=== PATIENT | female | born 1990 | race Caucasian/White ===

== ENCOUNTER → 2019-07-26 10:49 | Outpatient (BNVA) | payer SELFPAY | PROVIDERS: Family Provider Family Medicine; PCP Family Medicine; Visit Provider Nurse Practitioner | DX: J03.80 Acute tonsillitis due to other specified organisms (principal); B96.89 Other specified bacterial agents as the cause of diseases classified elsewhere | CPT/HCPCS: 87070; 87880 ==

== ENCOUNTER 2020-02-10 21:14 | Emergency (ER) | payer OTHER, SELFPAY ==
[2020-02-10 21:26] VITALS: BP 113/72; PULSE 77; RESP 18; TEMP 36.7; O2SAT 99; BMI 32.9
--- NOTE | 2020-02-10 21:40 | ED_ITS ---
HPI - Medical Clearance General Chief complaint: Medical Clearance Stated complaint: poss exposure Time Seen by Provider: 02/10/20 21:33 Source: patient (Patient self removed NG tube causing fluids to fly and nurses face. 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 Nurse was wearing a mask and denies any fluids getting into her eye or mouth. 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 Nurse said that patient self removed NG tube causing fluids to splash in her face. Nurse was wearing a mask and denies any fluids getting into her eye or mouth. Nurse states that patient had tested negative for HIV and was positive for hep C. While here in the ED nurse/patient had a normal physical exam and showed no signs of any distress. CBC, CMP were normal. HIV and hep panel were ordered and pending. Patient was discharged and told that she will be contacted by [facility] about lab results in the next several days. Return to ED if she has any worsening symptoms. Patient understood and agreed with plan. Vital Signs Temperature 98.0 F 02/10/20 21:26 Pulse Rate 80 02/10/20 22:23 Respiratory Rate 18 02/10/20 22:23 Blood Pressure 115/76 02/10/20 22:23 Pulse Oximetry 98 02/10/20 22:23 MDM - Medical Clearance Lab Data Attestation: I reviewed the patient's lab results. Result diagrams: 02/10/20 21:56 02/10/20 21:56 Labs: Lab Results 02/10/20 02/10/20 02/10/20 Range/Units 21:56 21:56 21:56 WBC 6.1 (4.0-10.0) 10^3/uL RBC 4.38 (4.1-5.3) 10^6/uL Hgb 13.5 (11.5-15.3) g/dL Hct 41.0 (37.0-47.0) % MCV 93.6 (81-99) fL MCH 30.8 (28.0-34.0) pg MCHC 32.9 (30.0-36.0) g/dL RDW 12.1 (12.1-15.1) % Plt Count 371 (130-400) 10^3/cmm MPV 9.1 (7.4-10.4) fL Neut % (Auto) 63.2 % Lymph % (Auto) 22.9 % Stark % (Auto) 7.6 % Eos % (Auto) 5.1 % Baso % (Auto) 1.0 % Neut # (Auto) 3.84 (1.8-7.7) 10^3/uL Lymph # (Auto) 1.4 (0.8-4.8) 10^3/uL Stark # (Auto) 0.5 (0.2-0.9) 10^3/uL Eos # (Auto) 0.3 (0.0-0.8) 10^3/uL Baso # (Auto) 0.1 (0.0-0.1) 10^3/uL Nucleated RBC % (auto) 0 % Nucleated RBCs # 0.0 /100WBC Sodium 138 (136-145) mmol/L Potassium 4.5 (3.5-5.1) mmol/L Chloride 103 (98-107) mmol/L Carbon Dioxide 25 (22-29) mmol/L Anion Gap 14.5 (5-19) BUN 10 (6-20) mg/dL Creatinine 0.6 (0.5-0.9) mg/dL GFR Calculation 119.9 (90-130) mL/min Glucose 96 (65-115) mg/dL Calculated Osmolality 282 L (285-295) mOsm/kg Calcium 8.7 (8.5-10.5) mg/dL Total Bilirubin 0.3 (0.15-1.2) mg/dL AST 18 (0-32) U/L ALT 23 (0-33) U/L Alkaline Phosphatase 76 (35-105) IU/L Total Protein 7.4 (6.6-8.7) g/dL Albumin 4.3 (3.5-5.2) g/dL Globulin 3.1 (1.3-4.6) g/dL Hepatitis A IgM Ab (Nonreactive) Hep Bs Antigen (Nonreactive) Hep Bs Antibody (0-8.5) Hep B Core Total Ab (Nonreactive) Hepatitis C Antibody (Nonreactive) HIV 1&2 Ab & HIV 1 Ag Non-reactive (Non-Reactiv) HIV 1&2 Antibody Non-reactive (Non-Reactiv) 02/10/20 Range/Units 21:56 WBC (4.0-10.0) 10^3/uL RBC (4.1-5.3) 10^6/uL Hgb (11.5-15.3) g/dL Hct (37.0-47.0) % MCV (81-99) fL MCH (28.0-34.0) pg MCHC (30.0-36.0) g/dL RDW (12.1-15.1) % Plt Count (130-400) 10^3/cmm MPV (7.4-10.4) fL Neut % (Auto) % Lymph % (Auto) % Stark % (Auto) % Eos % (Auto) % Baso % (Auto) % Neut # (Auto) (1.8-7.7) 10^3/uL Lymph # (Auto) (0.8-4.8) 10^3/uL Stark # (Auto) (0.2-0.9) 10^3/uL Eos # (Auto) (0.0-0.8) 10^3/uL Baso # (Auto) (0.0-0.1) 10^3/uL Nucleated RBC % (auto) % Nucleated RBCs # /100WBC Sodium (136-145) mmol/L Potassium (3.5-5.1) mmol/L Chloride (98-107) mmol/L Carbon Dioxide (22-29) mmol/L Anion Gap (5-19) BUN (6-20) mg/dL Creatinine (0.5-0.9) mg/dL GFR Calculation (90-130) mL/min Glucose (65-115) mg/dL Calculated Osmolality (285-295) mOsm/kg Calcium (8.5-10.5) mg/dL Total Bilirubin (0.15-1.2) mg/dL AST (0-32) U/L ALT (0-33) U/L Alkaline Phosphatase (35-105) IU/L Total Protein (6.6-8.7) g/dL Albumin (3.5-5.2) g/dL Globulin (1.3-4.6) g/dL Hepatitis A IgM Ab Non-reactive (Nonreactive) Hep Bs Antigen Non-reactive (Nonreactive) Hep Bs Antibody 3.5 (0-8.5) Hep B Core Total Ab Non-reactive (Nonreactive) Hepatitis C Antibody Non-reactive (Nonreactive) HIV 1&2 Ab & HIV 1 Ag (Non-Reactiv) HIV 1&2 Antibody (Non-Reactiv) Discharge Plan Discharge Patient Disposition: Home, Self-Care Clinical Impression: Exposure to blood or body fluid Condition: Stable Discharge Orders: Discharge Order (Routine); Ordered 02/10/20 Ordered By: John Liu Referrals: Sidney Salazar MD [Primary Care Provider] - Discharge Diet: Regular Discharge Activity: Resume usual activity Patient Instructions: Blood/Body Fluid Exposure - Occupational Activity Restrictions/Additional Instructions: Follow-up with medical provider as directed in 5-7 days. Hepatitis panel, HIV testing pending. Lab will contact you with results. Return to the ER or your medical provider if condition worsens. Please read and understand discharge instructions. If any questions, please ask. Discharge Date/Time: 02/10/20 22:24
[2020-02-10 22:00] LABS: Basophils # 0.1 10^3/uL (0.0-0.1); Eosinophils # 0.3 10^3/uL (0.0-0.8); Eosinophils % 5.1 %; Hemoglobin 13.5 g/dL (11.5-15.3); Lymphocytes # 1.4 10^3/uL (0.8-4.8); Lymphocytes % 22.9 %; Mean Corpuscular HGB Conc 32.9 g/dL (30.0-36.0); Mean Corpuscular Hemoglobin 30.8 pg (28.0-34.0); Mean Corpuscular Volume 93.6 fL (81-99); Mean Platelet Volume 9.1 fL (7.4-10.4); Monocytes # 0.5 10^3/uL (0.2-0.9); Monocytes % 7.6 %; Neutrophils # 3.84 10^3/uL (1.8-7.7); Neutrophils % 63.2 %; Nucleated Red Blood Cells % 0 %; Platelet Count 371 10^3/cmm (130-400); Red Blood Count 4.38 10^6/uL (4.1-5.3); Red Cell Distribution Width 12.1 % (12.1-15.1); White Blood Count 6.1 10^3/uL (4.0-10.0)
[2020-02-10 22:23] VITALS: BP 115/76; PULSE 80; RESP 18; O2SAT 98
[2020-02-10 22:23] LABS: Alanine Aminotransferase 23 U/L (0-33); Albumin Level 4.3 g/dL (3.5-5.2); Alkaline Phosphatase 76 IU/L (35-105); Aspartate Amino Transferase 18 U/L (0-32); Blood Urea Nitrogen 10 mg/dL (6-20); Calcium 8.7 mg/dL (8.5-10.5); Carbon Dioxide 25 mmol/L (22-29); Chloride 103 mmol/L (98-107); Globulin 3.1 g/dL (1.3-4.6); Glomerular Filtration Rate 119.9 mL/min (90-130); Glucose 96 mg/dL (65-115); Osmolality Calculated 282 mOsm/kg (285-295); Sodium 138 mmol/L (136-145); Total Bilirubin 0.3 mg/dL (0.15-1.2); Total Protein 7.4 g/dL (6.6-8.7)
[2020-02-10 22:38] LABS: Anion Gap 14.5 (5-19); Potassium 4.5 mmol/L (3.5-5.1)
[2020-02-10 22:46] LABS: HIV 1 & 2 Antibody Non-Reactive (Non-Reactiv); HIV 1 & 2 Antigen Non-Reactive (Non-Reactiv)
[2020-02-11] LABS: Hepatitis A Antibody IgM Non-Reactive (Nonreactive); Hepatitis B Core AB, Total Non-Reactive (Nonreactive); Hepatitis B Surface AB 3.5 (0-8.5); Hepatitis B Surface Antigen Non-Reactive (Nonreactive); Hepatitis C Virus Antibody Non-Reactive (Nonreactive)
== END 2020-02-10 22:24 | disposition home or self-care (01) ==
PROVIDERS: Emergency Provider Physician Assistant; PCP Family Medicine
DX: Z77.21 Contact with and (suspected) exposure to potentially hazardous body fluids (principal); Y99.0 Civilian activity done for income or pay
CPT/HCPCS: 80053; 85025; 86705; 86706; 86709; 86803; 87340; 87806; 99281; 99282

== ENCOUNTER → 2021-02-03 13:04 | Outpatient (BNVA) | payer OTHER, SELFPAY | PROVIDERS: PCP Family Medicine; Visit Provider Family Medicine | DX: Z20.822 Contact with and (suspected) exposure to COVID-19 (principal) | CPT/HCPCS: 87635 ==

== ENCOUNTER 2022-11-13 06:13 | Outpatient (CLI) | payer OTHER, SELFPAY ==
[2022-11-13 07:36] LABS: Chol HDL Ratio 2.97 mg/dL (0.0-4.40); Cholesterol 232 mg/dL (0-200); Glucose 68 mg/dL (65-115); HDL Cholesterol 78 mg/dL (60-100); LDL Cholesterol Calculated 125 mg/dL (50-129); Triglycerides 146 mg/dL (0-150)
[2022-11-13 07:44] LABS: Estmated Average Glucose 100; Hemoglobin A1C 5.1 % (4.0-6.0)
== END 2022-11-13 06:14 | disposition home or self-care (01) ==
PROVIDERS: PCP Family Medicine
DX: Z01.89 Encounter for other specified special examinations (principal)
CPT/HCPCS: 80061; 82947; 83036

== ENCOUNTER → 2023-05-26 09:34 | Outpatient (BNVA) | payer OTHER, SELFPAY | PROVIDERS: PCP Family Medicine; Visit Provider Family Medicine | DX: E66.9 Obesity, unspecified (principal); N92.6 Irregular menstruation, unspecified | CPT/HCPCS: 80053; 80061; 82672; 83001; 83002; 84144; 84439; 84443; 85025 ==

== ENCOUNTER 2023-06-28 13:53 | Outpatient (CLI) | payer OTHER, SELFPAY ==
--- NOTE | 2023-06-28 14:00 | US_ITS ---
WS: [id number] US pelv w/transvag [id number] HISTORY: ovarian cyst, fibroid COMPARISON: 05/20/2021 Uterus: 8.1 cm x 6.4 cm x 4.8 cm. Normal size anteverted uterus. No fibroid or mass. Previously described intramural fibroid is not identified on today's exam. Endometrium: 0.6 cm. Normal. Right ovary: 3.5 cm x 2.4 cm x 2.1 cm. Normal size and vascularity, no cystic or solid masses. Left ovary: 3.5 cm x 2.3 cm x 2.2 cm. Normal size and vascularity, no cystic or solid masses. No free fluid in the cul-de-sac. IMPRESSION: 1. Normal transvaginal pelvic ultrasound. 2. No uterine fibroid or ovarian cyst identified today.
== END 2023-06-28 13:54 | disposition home or self-care (01) ==
LOC: RAD 13:53
PROVIDERS: PCP Family Medicine; Visit Provider Family Medicine
DX: N83.209 Unspecified ovarian cyst, unspecified side (principal); D25.9 Leiomyoma of uterus, unspecified
CPT/HCPCS: 76830; 76856

== ENCOUNTER 2023-07-11 02:11 | Emergency (ER) | payer OTHER, SELFPAY ==
[2023-07-11 02:44] VITALS: BP 139/89; PULSE 79; RESP 13; TEMP 36.6; O2SAT 99; BMI 37.5
--- NOTE | 2023-07-11 03:00 | ECG_ITS ---
[facility] Test Date: 2023-07-11 Pat Name: Michelle Haro Department: Room: Gender: Female Manager Qa: : 1990 Requested By: Noni Pascal Order Number: [id number] Marli MD: Brianna Arroyo M.D. Measurements Intervals [place] Rate: 83 P: 65 SC: 150 QRS: 99 QRSD: 110 T: 74 QT: 357 QTc: 421 Interpretive Statements SINUS RHYTHM BORDERLINE RIGHT AXIS DEVIATION [QRS AXIS > 90] No previous ECG available for comparison Electronically Signed On 07-11-2023 15:55:51 HOSPICE CARE TRANSITIONS COORDINATOR by Brianna Arroyo M.D. [email or web address]
[2023-07-11 03:34] LABS: Basophils # 0.1 10^3/uL (0.0-0.1); Basophils % 0.8 %; Eosinophils # 0.2 10^3/uL (0.0-0.8); Eosinophils % 1.8 %; Hematocrit 47.3 % (36-47); Lymphocytes % 22.5 %; Mean Corpuscular HGB Conc 32.3 g/dL (30-55); Mean Corpuscular Hemoglobin 30.4 pg (27-33); Mean Corpuscular Volume 93.8 fl (85-98); Mean Platelet Volume 9.5 fL (7.4-10.4); Monocytes # 0.7 10^3/uL (0.2-0.9); Monocytes % 7.4 %; Neutrophils % 67.4 %; Nucleated Red Blood Cells % 0 %; Platelet Count 428 10^3/cmm (157-399); Red Blood Count 5.04 10^6/uL (3.85-5.65)
--- NOTE | 2023-07-11 03:44 | XRR_ITS ---
PROCEDURE INFORMATION: Exam: XR Chest Exam date and time: 07/11/2023 4:03 AM Age: 32 years old Clinical indication: Other: Chest heaviness. General weakness; Patient HX: General weakness with chest heaviness and dizziness. ; Additional info: Dizzy TECHNIQUE: Imaging protocol: Radiologic exam of the chest. Views: 1 view. COMPARISON: No relevant prior studies available. FINDINGS: Lungs: Unremarkable. No consolidation. Pleural spaces: Unremarkable. No pleural effusion. No pneumothorax. Heart/Mediastinum: Unremarkable. No cardiomegaly. Bones/joints: Unremarkable. XR/XR chest 1V portable [id number] IMPRESSION: No acute findings.
--- NOTE | 2023-07-11 03:44 | CTR_ITS ---
PROCEDURE INFORMATION: Exam: CT Head Without Contrast Exam date and time: 07/11/2023 4:11 AM Age: 32 years old Clinical indication: Patient HX: General weakness with dizziness and nausea; Additional info: Dizzy TECHNIQUE: Imaging protocol: Computed tomography of the head without contrast. Radiation optimization: All CT scans at this facility use at least one of these dose optimization techniques: automated exposure control; mA and/or kV adjustment per patient size (includes targeted exams where dose is matched to clinical indication); or iterative reconstruction. REPORTING DATA: Count of CT and Cardiac NM exams in prior 12 months: This patient has received 0 known CTs and 0 known cardiac nuclear medicine studies in the 12 months prior to the current study. COMPARISON: No relevant prior studies available. RADIATION DOSE METRICS: Total DLP (mGy-cm): 1082.58 FINDINGS: Brain: Normal. No hemorrhage. Unremarkable white matter. No mass effect. Cerebral ventricles: No ventriculomegaly. Paranasal sinuses: Visualized sinuses are unremarkable. No fluid levels. Mastoid air cells: Visualized mastoid air cells are well aerated. Bones/joints: Unremarkable. No acute fracture. Soft tissues: Unremarkable. CT/CT head wo con* [id number] IMPRESSION: No acute intracranial abnormality.
--- NOTE | 2023-07-11 03:48 | ED_ITS ---
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 Nursing staff noted that her pupils were dilated equally. She was nauseated. Some of the symptoms have resolved at this point, but she is still feeling very weak, with heavy extremities. She denies other illness currently. No history of fever, cough, diarrhea, vomiting. She has a history of tubal ligation, and does not believe she is . No chest pain. Associated symptoms: Denies chest pain, headache(s), nausea or vomiting Associated neuro symptoms: Deny confusion Review of Systems 2 Const: Denies: fever(s) Eyes: Reports: blurry vision (resolved) ENMT: Denies: throat pain Card: Denies: chest pain Resp: Denies: dyspnea, productive cough or non-productive cough GI: Denies: abdominal pain, nausea, vomiting, diarrhea or hematochezia : Denies: difficulty voiding Skin/Breast: Denies: rash Neuro: Reports: weakness in extremities and dizziness; Denies: headache(s), confusion or Slurred speech present PFSH ED 2 PFSH: Medical History Obesity, Class II, BMI 35-39.9 Irregular menstrual cycle Uterine fibroid Anxiety Moderate major depression Genital herpes Surgical History H/O tubal ligation History of Family History Grandfather Cancer Paternal-Skin Grandmother Cancer Paternal and maternal--unknown Other CAD (coronary artery disease) Chronic kidney disease (CKD) Dementia Diabetes Heart disease Hyperlipidemia Hypertension Lung disease Psychiatric illness Denies family history of Liver disease Aneurysm Clotting disorder Hyperthyroidism Hypothyroidism Anesthesia complication Bleeding disorder Stroke Social History Smoking and tobacco/nicotine status: never used tobacco/nicotine Alcohol intake: current Alcohol intake frequency: holidays/special occasions only Substance/Drug Use: never Lives independently: Yes Marital status: Number of children: 3 Current occupational status: employed 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 Special leo needs: No Agree to transfusion: Yes Physical Exam 2 Const: COMMON NORMALS: no acute distress GENERAL APPEARANCE: cooperative and ill appearing (mildly); not frail appearing HENMT: COMMON NORMALS: normocephalic, atraumatic and Normal external nose present HEAD & SCALP: normocephalic and atraumatic FACE & SINUS: normal facial exam and face symmetric NOSE: Normal external nose present Eye: COMMON NORMALS: Equal, round and reactive pupils present and EOMs intact bilaterally PUPIL: Yes Equal, round and reactive pupils present Neck/C-Spine: GENERAL: Yes trachea midline Chest: CHEST: Yes Symmetrical chest wall rise Resp: COMMON NORMALS: normal respiratory effort, No retractions, No use of accessory muscles and clear to auscultation bilaterally AUSCULTATION: clear to auscultation bilaterally Cardio: COMMON NORMALS: regular rate and regular rhythm RATE: regular rate RHYTHM: regular rhythm GI: COMMON NORMALS: Normal to inspection, nondistended, normoactive bowel sounds present Extremity: COMMON NORMALS: no pedal edema Neuro: NEHEMIAH COMA SCALE: document GCS findings [place] coma scale eye opening: Spontaneous [place] coma scale verbal response: Orientated [place] coma scale motor response: Obey commands [place] coma scale total score: 15 C RANIAL NERVES: Yes CN normal except as noted COORDINATION/BALANCE: f [id number] test normal SPEECH: speech normal GAIT: Yes Normal gait present SENSORY EXAM: Yes extremities (intact) MOTOR EXAM: Pronator motor function not present and Normal motor muscle tone present throughout C OORDINATION: [id number] test normal Psych: COMMON NORMALS: speech normal SPEECH: Yes normal speech Skin: COMMON NORMALS: no rashes or lesions noted GENERAL SKIN EXAM: no rashes or lesions noted Course 2 Vital Signs: Vital signs: Vital Signs Temperature 97.8 F 07/11/23 06:11 Pulse Rate 79 07/11/23 06:11 Respiratory Rate 16 07/11/23 06:11 Blood Pressure 130/88 07/11/23 06:11 Pulse Oximetry 99 07/11/23 06:11 Oxygen Delivery Me thod Room Air 07/11/23 02:44 MDM - Dizziness Medical Decision Making Vitals have been stable. She is neurologically intact and symmetrical. She is able to walk to bathroom in the ER. CBC is not remarkable. BMP is not remarkable. Chest x-ray is negative. Head CT is nonacute. Urinalysis is contaminated, but there is a significant number of whites, with bacteria. Will elect to treat urinary tract infection potential in this patient. She is COVID- negative. She is feeling improved after IV fluid infusion. She will go home and rest. Return for any return of symptoms. Lab Data 07/11/23 03:15 07/11/23 03:15 Radiology Impressions Chest X-Ray 07/11/23 03:44 IMPRESSION: No acute findings. Head CT 07/11/23 03:44 IMPRESSION: No acute intracranial abnormality. Laboratory Results WBC 8.90 10^3/uL (3.29-11.43) 07/11/23 03:15 RBC 5.04 10^6/uL (3.85-5.65) 07/11/23 03:15 Hgb 15.30 g/dL (11.27-16.99) 07/11/23 03:15 Hct 47.3 % (36-47) H 07/11/23 03:15 MCV 93.8 fl (85-98) 07/11/23 03:15 MCH 30.4 pg (27-33) 07/11/23 03:15 MCHC 32.3 g/dL (30-55) 07/11/23 03:15 RDW 12.0 % (12.1-15.1) L 07/11/23 03:15 Plt Count 428 10^3/cmm (157-399) H 07/11/23 03:15 MPV 9.5 fL (7.4-10.4) 07/11/23 03:15 Neut % (Auto) 67.4 % 07/11/23 03:15 Lymph % (Auto) 22.5 % 07/11/23 03:15 Sabine % (Auto) 7.4 % 07/11/23 03:15 Eos % (Auto) 1.8 % 07/11/23 03:15 Baso % (Auto) 0.8 % 07/11/23 03:15 Neut # (Auto) 6.00 10^3/uL (1.8-7.7) 07/11/23 03:15 Lymph # (Auto) 2.0 10^3/uL (0.8-4.8) 07/11/23 03:15 Sabine # (Auto) 0.7 10^3/uL (0.2-0.9) 07/11/23 03:15 Eos # (Auto) 0.2 10^3/uL (0.0-0.8) 07/11/23 03:15 Baso # (Auto) 0.1 10^3/uL (0.0-0.1) 07/11/23 03:15 Nucleated RBC % (auto) 0 % 07/11/23 03:15 Nucleated RBCs # 0.0 /100WBC 07/11/23 03:15 Sodium 134 mmol/L (136-145) L 07/11/23 03:15 Potassium 3.7 mmol/L (3.5-5.1) 07/11/23 03:15 Chloride 98 mmol/L (98-107) 07/11/23 03:15 Carbon Dioxide 25 mmol/L (22-29) 07/11/23 03:15 Anion Gap 14.7 (5-19) 07/11/23 03:15 BUN 9 mg/dL (6-20) 07/11/23 03:15 Creatinine 0.8 mg/dL (0.5-0.9) 07/11/23 03:15 GFR Calculation 84.2 mL/min (90-130) L 07/11/23 03:15 Glucose 93 mg/dL (65-115) 07/11/23 03:15 Calculated Osmolality 276 mOsm/kg (285-295) L 07/11/23 03:15 Calcium 9.8 mg/dL (8.5-10.5) 07/11/23 03:15 Total Bilirubin 0.3 mg/dL (0.15-1.2) 07/11/23 03:15 AST 21 U/L (0-32) 07/11/23 03:15 ALT 38 U/L (0-33) H 07/11/23 03:15 Alkaline Phosphatase 91 U/L (35-105) 07/11/23 03:15 Total Protein 8.0 g/dL (6.6-8.7) 07/11/23 03:15 Albumin 4.8 g/dL (3.5-5.2) 07/11/23 03:15 Globulin 3.2 g/dL (1.3-4.6) 07/11/23 03:15 TSH 1.80 uIU/mL (0.27-4.20) 07/11/23 03:15 HCG, Qual Negative (Negative) 07/11/23 03:30 Urine Color Dark yellow (Yellow) 07/11/23 03:30 Urine Appearance Hazy (CLEAR) A 07/11/23 03:30 Urine pH 5 (5-7) 07/11/23 03:30 Ur Specific [place] 1.025 (1.005-1.030) 07/11/23 03:30 Urine Protein Neg (Negative) 07/11/23 03:30 Urine Glucose (UA) Norm (Normal) 07/11/23 03:30 Urine Ketones Negative (Negative) 07/11/23 03:30 Urine Blood Trace (Negative) H 07/11/23 03:30 Urine Nitrate Negative (Negative) 07/11/23 03:30 Urine Bilirubin Neg (Negative) 07/11/23 03:30 Urine Urobilinogen Norm mg/dL (Negative) 07/11/23 03:30 Ur Leukocyte Esterase Trace (Negative) H 07/11/23 03:30 Urine RBC 5-10 /hpf (0-2) H 07/11/23 03:30 Urine WBC 15-25 /hpf (0-5) H 07/11/23 03:30 Ur Squamous Epith Cells 15-25 /hpf (0-5) H 07/11/23 03:30 Amorphous Sediment Not Reportable 07/11/23 03:30 Urine Bacteria 2+ /hpf (NONE) H 07/11/23 03:30 Urine Mucus 2+ /hpf 07/11/23 03:30 SARS-CoV-2 Ag (Rapid) negative (Negative) 07/11/23 03:27 All radiology interpretation(s) finalized by discharge Discharge Plan Discharge Patient Disposition: Home Clinical Impression: Near syncope, UTI (urinary tract infection) Condition: Stable Prescriptions: New Macrobid 100 mg capsule 100 mg PO BID 7 Days Qty: 14 0RF Rx Instructions: must administer with a meal/food No Action naproxen sodium [Aleve] 220 mg capsule 220 mg PO Q12H PRN bupropion HCl [Wellbutrin XL] 300 mg tablet extended release 24 hr 300 mg PO QAM Qty: 30 1RF alprazolam [Xanax] 0.25 mg tablet 0.25 mg PO BID Qty: 60 0RF duloxetine [Cymbalta] 30 mg capsule,delayed release(DR/EC) 30 mg PO DAILY Qty: 30 0RF Discharge Orders: Discharge ED (Routine); Ordered 07/11/23 Ordered By: Edwin Davis Referrals: Kai Moran MD [Primary Care Provider] - 1-3 days Patient Instructions: Urinary Tract Infection in Women (ED), Near Syncope (ED), Opioid Safety, Pain Management Activity Restrictions/Additional Instructions: For now, stop your Cymbalta. You may restart the medication more than 48 hours after your symptoms have resolved if you wish to repeat a trial. If your symptoms return, consult your doctor about this medication. Antibiotics as directed. Drink plenty of clear liquids the next 24 hours. Return for fever greater than 100, worsening dizziness or weakness despite treatment, vomiting liquids or medications, language problems, vision problems, other concerning symptoms. See your doctor this week. Coding Level of Care Code ED Commercial Stripper for Modesta Joaquin
[2023-07-11] MEDS: ondansetron 2 mg/ML SDV 2 mL 4 MG IVP (03:49)
[2023-07-11] MEDS: sodium chloride 0.9% 1,000 ML 999 ML IV (03:51)
[2023-07-11 03:54] LABS: Bilirubin Urine Neg (Negative); Blood Urine Trace (Negative); Glucose Urine UA Norm (Normal); Ketones Urine Negative (Negative); Nitrate Urine Negative (Negative); Protein Urine Neg (Negative); Specific Gravity, Urine 1.025 (1.005-1.030); Urine Appearance Hazy (CLEAR); Urine Color Dark Yellow (Yellow); pH Urine 5 (5-7)
[2023-07-11 03:55] VITALS: BP 147/104; PULSE 83; RESP 16; O2SAT 99
[2023-07-11 03:55] LABS: Add Urine Microscopic? YES; Leukocyte Esterase Urine Trace (Negative); Urobilinogen Urine Norm (Negative)
[2023-07-11 03:57] LABS: Bacteria Urine 2+ /hpf; Mucus Urine 2+ /hpf; Squamous Epithelial Cell Urine 15-25 /hpf (0-5); WBC Urine 15-25 /hpf (0-5)
[2023-07-11 04:02] LABS: Alanine Aminotransferase 38 U/L (0-33); Albumin Level 4.8 g/dL (3.5-5.2); Alkaline Phosphatase 91 U/L (35-105); Aspartate Amino Transferase 21 U/L (0-32); Blood Urea Nitrogen 9 mg/dL (6-20); Calcium 9.8 mg/dL (8.5-10.5); Carbon Dioxide 25 mmol/L (22-29); Chloride 98 mmol/L (98-107); Globulin 3.2 g/dL (1.3-4.6); Glomerular Filtration Rate 84.2 mL/min (90-130); Glucose 93 mg/dL (65-115); Osmolality Calculated 276 mOsm/kg (285-295); Sodium 134 mmol/L (136-145); Total Bilirubin 0.3 mg/dL (0.15-1.2)
[2023-07-11 04:04] LABS: Anion Gap 14.7 (5-19); Potassium 3.7 mmol/L (3.5-5.1)
[2023-07-11 04:07] LABS: SARS Covid-2 Antigen negative (Negative)
[2023-07-11 05:27] VITALS: BP 130/88; PULSE 79; RESP 16
[2023-07-11 06:11] VITALS: BP 130/88; PULSE 79; RESP 16; TEMP 36.6; O2SAT 99
[2023-07-11 08:13] LABS: HCG Qualitative Urine. Negative (Negative)
== END 2023-07-11 06:13 | disposition home or self-care (01) ==
PROVIDERS: Physician Assistant; Emergency Provider Emergency Medicine; PCP Family Medicine
DX: R55 Syncope and collapse (principal); N39.0 Urinary tract infection, site not specified; Z11.52 Encounter for screening for COVID-19
CPT/HCPCS: 36415; 70450; 71045; 80053; 81001; 81025; 84443; 85025; 87426; 93005; 96361; 96374; 99285; J2405; J7030

== ENCOUNTER → 2023-07-30 11:15 | Outpatient (BNVA) | payer OTHER, SELFPAY | PROVIDERS: PCP Family Medicine; Visit Provider Registered Nurse Neonatal Intensive Care | DX: J02.9 Acute pharyngitis, unspecified (principal) | CPT/HCPCS: 87880 ==

== ENCOUNTER → 2023-08-24 10:00 | Outpatient (BNVA) | payer OTHER, SELFPAY | PROVIDERS: PCP Family Medicine; Visit Provider Obstetrics & Gynecology | DX: N93.9 Abnormal uterine and vaginal bleeding, unspecified (principal) | CPT/HCPCS: 87624 ==

== ENCOUNTER 2023-08-28 22:03 | Emergency (ER) | payer OTHER, SELFPAY ==
[2023-08-28 22:12] VITALS: BP 121/80; PULSE 90; RESP 16; TEMP 36.5; O2SAT 100; BMI 36.6
[2023-08-28 22:56] VITALS: BP 115/77; PULSE 86; RESP 16; O2SAT 97
[2023-08-28 23:08] LABS: Add Urine Microscopic? NO; Charge for UA Resulting for Rev
[2023-08-28 23:10] LABS: Basophils # 0.1 10^3/uL (0.0-0.1); Basophils % 0.8 %; Eosinophils # 0.3 10^3/uL (0.0-0.8); Eosinophils % 3.9 %; Lymphocytes % 30.5 %; Mean Corpuscular HGB Conc 33.3 g/dL (30-55); Mean Corpuscular Volume 90.1 fl (85-98); Mean Platelet Volume 9.1 fL (7.4-10.4); Monocytes # 0.5 10^3/uL (0.2-0.9); Neutrophils # 3.81 10^3/uL (1.8-7.7); Neutrophils % 57.8 %; Nucleated Red Blood Cells % 0 %; Platelet Count 388 10^3/cmm (157-399); Red Blood Count 4.66 10^6/uL (3.85-5.65); Red Cell Distribution Width 12.6 % (12.1-15.1); White Blood Count 6.59 10^3/uL (3.29-11.43)
[2023-08-28 23:16] LABS: Bilirubin Urine Neg (Negative); Blood Urine Neg (Negative); Glucose Urine UA Norm (Normal); HCG Qualitative Urine. Negative (Negative); Ketones Urine Negative (Negative); Leukocyte Esterase Urine Negative (Negative); Nitrate Urine Negative (Negative); Protein Urine Neg (Negative); Urine Appearance Clear (CLEAR); Urine Color Dark Yellow (Yellow); Urobilinogen Urine Norm (Negative); pH Urine 5 (5-7)
[2023-08-28] MEDS: sodium chloride 0.9% 1,000 ML 999 ML IV (23:18)
[2023-08-28] MEDS: ondansetron 2 mg/ML SDV 2 mL 4 MG IVP (23:18)
[2023-08-28 23:20] LABS: Alanine Aminotransferase 71 U/L (0-33); Albumin Level 4.3 g/dL (3.5-5.2); Alkaline Phosphatase 88 U/L (35-105); Anion Gap 14.8 (5-19); Aspartate Amino Transferase 39 U/L (0-32); Blood Urea Nitrogen 9 mg/dL (6-20); Calcium 9.6 mg/dL (8.5-10.5); Carbon Dioxide 27 mmol/L (22-29); Chloride 102 mmol/L (98-107); Globulin 2.9 g/dL (1.3-4.6); Glomerular Filtration Rate 98.3 mL/min (90-130); Glucose 107 mg/dL (65-115); Magnesium 1.7 mg/dL (1.7-2.3); Osmolality Calculated 289 mOsm/kg (285-295); Potassium 3.8 mmol/L (3.5-5.1); Sodium 140 mmol/L (136-145); Total Bilirubin 0.2 mg/dL (0.15-1.2); Total Protein 7.2 g/dL (6.6-8.7)
[2023-08-28] MEDS: LORazepam 2 mg/mL INJ 10 mL MDV 0.5 MG IVP (23:21)
--- NOTE | 2023-08-28 23:35 | W.ED.DIZZY ---
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 She was at work this morning, when dizziness worsen. She has had this problem on and off for a couple of years now. She describes a whooshing in her left ear that correlates to her heartbeat. She notes that her dizziness is worse when looking left or turning her head to the left in particular. She does not describe significant hearing loss. Associated symptoms: Reports nausea; Denies chest pain, headache(s) or vomiting Associated neuro symptoms: Deny confusion Review of Systems Const: Denies: fever(s) Eyes: Denies: change in vision Card: Denies: chest pain Resp: Denies: dyspnea GI: Reports: nausea; Denies: vomiting Neuro: Reports: dizziness; Denies: headache(s) or confusion Psych: Reports: anxiety PFSH ED PFSH: Medical History Obesity, Class II, BMI 35-39.9 Irregular menstrual cycle Uterine fibroid Anxiety Moderate major depression Genital herpes Surgical History H/O tubal ligation History of Family History Grandmother Heart disease Hypercholesteremia Hypertension Diabetes Mother Heart disease Hypercholesteremia Hypertension Diabetes Denies family history of Colon cancer Ovarian cancer Prostate cancer Breast cancer Uterine cancer Thyroid disease Stroke Female Reproductive History: Date of last menstrual period: 07/25/23 Physical Exam Const: COMMON NORMALS: no acute distress, patient oriented x3 and alert GENERAL APPEARANCE: cooperative; not ill appearing and not frail appearing HENMT: COMMON NORMALS: normocephalic, atraumatic and Normal external nose present HEAD & SCALP: normocephalic and atraumatic FACE & SINUS: normal facial exam and face symmetric NOSE: Normal external nose present Eye: COMMON NORMALS: Equal, round and reactive pupils present and EOMs intact bilaterally PUPIL: Yes Equal, round and reactive pupils present Neck/C-Spine: GENERAL: Yes trachea midline Chest: CHEST: Yes Symmetrical chest wall rise Resp: COMMON NORMALS: normal respiratory effort, No retractions, No use of accessory muscles and clear to auscultation bilaterally AUSCULTATION: clear to auscultation bilaterally Cardio: COMMON NORMALS: regular rate and regular rhythm RATE: regular rate RHYTHM: regular rhythm GI: COMMON NORMALS: Normal to inspection, nondistended, normoactive bowel sounds present Extremity: COMMON NORMALS: no pedal edema Neuro: NEHEMIAH COMA SCALE: document GCS findings [place] coma scale eye opening: Spontaneous [place] coma scale verbal response: Orientated [place] coma scale motor response: Obey commands [place] coma scale total score: 15 COMMON NORMALS: patient oriented x3 SENSORIUM/ORIENTATION: Yes alert CRANIAL NERVES: Yes CN normal except as noted COORDINATION/BALANCE: [id number] test normal SPEECH: speech normal GAIT: Yes Normal gait present SENSORY EXAM: Yes extremities (intact) MOTOR EXAM: Pronator motor function not present and Normal motor muscle tone present throughout COORDINATION: [id number] test normal Psych: COMMON NORMALS: speech normal SPEECH: Yes normal speech Skin: COMMON NORMALS: no rashes or lesions noted GENERAL SKIN EXAM: no rashes or lesions noted Course Vital Signs: Vital signs: Vital Signs Temperature 97.7 F 08/28/23 22:12 Pulse Rate 88 08/29/23 02:19 Respiratory Rate 16 08/29/23 02:19 Blood Pressure 119/77 08/28/23 23:47 Pulse Oximetry 98 08/29/23 02:19 Oxygen Delivery Me thod Room Air 08/28/23 23:47 MDM - Dizziness Medical Decision Making Symptoms are somewhat improved, although the patient is still dizzy. She received IV fluid, Ativan, and meclizine. With a history of a form of tinnitus to the left ear, 1 would wonder if M?ni?re's disease could be a culprit. CT scan of the head with CTA follow-up is negative for ischemia, occlusion, dissection, AVM, etc. She follows up with her family doctor later today. Further outpatient testing may be negative. Laboratory has been benign. Symptomatic treatment. Return for worsening symptoms. Lab Data 08/28/23 22:50 08/28/23 22:50 Radiology Impressions Head/Neck CTA 08/28/23 23:55 IMPRESSION: No large vessel stenosis or occlusion. IMPRESSION: No stenosis or occlusion. REFERENCES: NASCET CRITERIA. The degree of stenosis in the cervical segment of the internal carotid artery is based on NASCET criteria. Normal is no stenosis. Mild is less than 50% stenosis. Moderate is 50-69% stenosis. Severe is 70% to 99% stenosis. Total occlusion is no detectable patent lumen. Head CT 08/28/23 23:57 IMPRESSION: No acute intracranial abnormality. Laboratory Results WBC 6.59 10^3/uL (3.29-11.43) 08/28/23 22:50 RBC 4.66 10^6/uL (3.85-5.65) 08/28/23 22:50 Hgb 14.00 g/dL (11.27-16.99) 08/28/23 22:50 Hct 42.0 % (36-47) 08/28/23 22:50 MCV 90.1 fl (85-98) 08/28/23 22:50 MCH 30.0 pg (27-33) 08/28/23 22:50 MCHC 33.3 g/dL (30-55) 08/28/23 22:50 RDW 12.6 % (12.1-15.1) 08/28/23 22:50 Plt Count 388 10^3/cmm (157-399) 08/28/23 22:50 MPV 9.1 fL (7.4-10.4) 08/28/23 22:50 Neut % (Auto) 57.8 % 08/28/23 22:50 Lymph % (Auto) 30.5 % 08/28/23 22:50 [place] % (Auto) 7.0 % 08/28/23 22:50 Eos % (Auto) 3.9 % 08/28/23 22:50 Baso % (Auto) 0.8 % 08/28/23 22:50 Neut # (Auto) 3.81 10^3/uL (1.8-7.7) 08/28/23 22:50 Lymph # (Auto) 2.0 10^3/uL (0.8-4.8) 08/28/23 22:50 [place] # (Auto) 0.5 10^3/uL (0.2-0.9) 08/28/23 22:50 Eos # (Auto) 0.3 10^3/uL (0.0-0.8) 08/28/23 22:50 Baso # (Auto) 0.1 10^3/uL (0.0-0.1) 08/28/23 22:50 Nucleated RBC % (auto) 0 % 08/28/23 22:50 Nucleated RBCs # 0.0 /100WBC 08/28/23 22:50 Sodium 140 mmol/L (136-145) 08/28/23 22:50 Potassium 3.8 mmol/L (3.5-5.1) 08/28/23 22:50 Chloride 102 mmol/L (98-107) 08/28/23 22:50 Carbon Dioxide 27 mmol/L (22-29) 08/28/23 22:50 Anion Gap 14.8 (5-19) 08/28/23 22:50 BUN 9 mg/dL (6-20) 08/28/23 22:50 Creatinine 0.7 mg/dL (0.5-0.9) 08/28/23 22:50 GFR Calculation 98.3 mL/min (90-130) 08/28/23 22:50 Glucose 107 mg/dL (65-115) 08/28/23 22:50 Calculated Osmolality 289 mOsm/kg (285-295) 08/28/23 22:50 Calcium 9.6 mg/dL (8.5-10.5) 08/28/23 22:50 Magnesium 1.7 mg/dL (1.7-2.3) 08/28/23 22:50 Total Bilirubin 0.2 mg/dL (0.15-1.2) 08/28/23 22:50 AST 39 U/L (0-32) H 08/28/23 22:50 ALT 71 U/L (0-33) H 08/28/23 22:50 Alkaline Phosphatase 88 U/L (35-105) 08/28/23 22:50 Total Protein 7.2 g/dL (6.6-8.7) 08/28/23 22:50 Albumin 4.3 g/dL (3.5-5.2) 08/28/23 22:50 Globulin 2.9 g/dL (1.3-4.6) 08/28/23 22:50 HCG, Qual Negative (Negative) 08/28/23 22:30 Urine Color Dark yellow (Yellow) 08/28/23 22:30 Urine Appearance Clear (CLEAR) 08/28/23 22:30 Urine pH 5 (5-7) 08/28/23 22:30 Ur Specific [place] 1.020 (1.005-1.030) 08/28/23 22:30 Urine Protein Neg (Negative) 08/28/23 22:30 Urine Glucose (UA) Norm (Normal) 08/28/23 22:30 Urine Ketones Negative (Negative) 08/28/23 22:30 Urine Blood Neg (Negative) 08/28/23 22:30 Urine Nitrate Negative (Negative) 08/28/23 22:30 Urine Bilirubin Neg (Negative) 08/28/23 22:30 Urine Urobilinogen Norm mg/dL (Negative) 08/28/23 22:30 Ur Leukocyte Esterase Negative (Negative) 08/28/23 22:30 All radiology interpretation(s) finalized by discharge Discharge Plan Discharge Patient Disposition: Home Clinical Impression: Vertigo Condition: Stable Prescriptions: New meclizine 25 mg tablet 25 mg PO TID PRN (Reason: dizziness) Qty: 30 0RF No Action naproxen sodium [Aleve] 220 mg capsule 220 mg PO Q12H PRN bupropion HCl [Wellbutrin XL] 300 mg tablet extended release 24 hr 300 mg PO QAM Qty: 30 1RF alprazolam [Xanax] 0.25 mg tablet 0.25 mg PO BID Qty: 60 0RF duloxetine [Cymbalta] 30 mg capsule,delayed release(DR/EC) 30 mg PO DAILY Qty: 30 0RF Discharge Orders: Discharge ED (Routine); Ordered 08/29/23 Ordered By: Edwin Davis Referrals: Kai Moran MD [Primary Care Provider] - 1-3 days Patient Instructions: Vertigo (ED) Activity Restrictions/Additional Instructions: See your doctor in follow-up. Return for any concerns. 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
[2023-08-28 23:47] VITALS: BP 110/78; BP 113/73; BP 119/77; PULSE 88; PULSE 92; PULSE 98; RESP 18; O2SAT 98
--- NOTE | 2023-08-28 23:55 | CTR_ITS ---
PROCEDURE INFORMATION: Exam: CTA Head With Contrast, Arteriography Exam date and time: 08/29/2023 12:05 AM Age: 32 years old Clinical indication: Dizziness and giddiness and syncope and collapse; Patient HX: Near syncope with persistent dizziness. TECHNIQUE: Imaging protocol: Computed tomographic angiography of the head with contrast. Exam focused on the arteries. 3D rendering (Not supervised by radiologist): MIP and/or 3D reconstructed images were created by the technologist. Radiation optimization: All CT scans at this facility use at least one of these dose optimization techniques: automated exposure control; mA and/or kV adjustment per patient size (includes targeted exams where dose is matched to clinical indication); or iterative reconstruction. Contrast material: OMNI 350; Contrast volume: 100 ml; Contrast route: INTRAVENOUS (IV); COMPARISON: CT head wo con* [id number] 08/29/2023 12:02 AM RADIATION DOSE METRICS: Total DLP (mGy-cm): 540.19 FINDINGS: ANTERIOR CIRCULATION: Right internal carotid artery: Intracranial segment is patent with no significant stenosis. No aneurysm. Right middle cerebral artery: No occlusion or significant stenosis. No aneurysm. Right anterior cerebral artery: No occlusion or significant stenosis. No aneurysm. Left internal carotid artery: Intracranial segment is patent with no significant stenosis. No aneurysm. Left middle cerebral artery: No occlusion or significant stenosis. No aneurysm. Left anterior cerebral artery: No occlusion or significant stenosis. No aneurysm. POSTERIOR CIRCULATION: Right vertebral artery: No occlusion or significant stenosis. No aneurysm. Left vertebral artery: No occlusion or significant stenosis. No aneurysm. Basilar artery: No occlusion or significant stenosis. No aneurysm. Right posterior cerebral artery: No occlusion or significant stenosis. No aneurysm. Left posterior cerebral artery: No occlusion or significant stenosis. No aneurysm. Brain: No definite mass, mass effect, or midline shift. Cerebral ventricles: No ventriculomegaly. Bones/joints: Unremarkable. No acute fracture. Soft tissues: Unremarkable. PROCEDURE INFORMATION: Exam: CTA Neck With Contrast Exam date and time: 08/29/2023 12:05 AM Age: 32 years old Clinical indication: Dizziness and giddiness and syncope and collapse; Patient HX: Near syncope with persistent dizziness. TECHNIQUE: Imaging protocol: Computed tomographic angiography of the neck with contrast. Exam focused on the cervical segments of the vasculature. 3D rendering (Not supervised by radiologist): MIP and/or 3D reconstructed images were created by the technologist. Radiation optimization: All CT scans at this facility use at least one of these dose optimization techniques: automated exposure control; mA and/or kV adjustment per patient size (includes targeted exams where dose is matched to clinical indication); or iterative reconstruction. Contrast material: OMNI 350; Contrast volume: 100 ml; Contrast route: INTRAVENOUS (IV); COMPARISON: CT head wo amber* [id number] 08/29/2023 12:02 AM RADIATION DOSE METRICS: Total DLP (mGy-cm): 540.19 FINDINGS: Right common carotid artery: No stenosis. No dissection or occlusion. Right internal carotid artery: No stenosis of the extracranial segment. No dissection or occlusion. Right external carotid artery: No occlusion or stenosis of the origin. Left common carotid artery: No stenosis. No dissection or occlusion. Left internal carotid artery: No stenosis of the extracranial segment. No dissection or occlusion. Left external carotid artery: No occlusion or stenosis of the origin. Right vertebral artery: No stenosis. No dissection or occlusion. Left vertebral artery: No stenosis. No dissection or occlusion. Soft tissues: Normal. No significant soft tissue swelling. Bones/joints: No acute fracture. CT/CT angio headneck* [id number] IMPRESSION: No large vessel stenosis or occlusion. IMPRESSION: No stenosis or occlusion. REFERENCES: NASCET CRITERIA. The degree of stenosis in the cervical segment of the internal carotid artery is based on NASCET criteria. Normal is no stenosis. Mild is less than 50% stenosis. Moderate is 50-69% stenosis. Severe is 70% to 99% stenosis. Total occlusion is no detectable patent lumen.
--- NOTE | 2023-08-28 23:57 | CTR_ITS ---
PROCEDURE INFORMATION: Exam: CT Head Without Contrast Exam date and time: 08/29/2023 12:02 AM Age: 32 years old Clinical indication: Patient HX: Near syncope with persistent dizziness. TECHNIQUE: Imaging protocol: Computed tomography of the head without contrast. Radiation optimization: All CT scans at this facility use at least one of these dose optimization techniques: automated exposure control; mA and/or kV adjustment per patient size (includes targeted exams where dose is matched to clinical indication); or iterative reconstruction. COMPARISON: CT head wo con* [id number] 07/11/2023 4:11 AM RADIATION DOSE METRICS: Total DLP (mGy-cm): 968.88 FINDINGS: Brain: Normal. No hemorrhage. Unremarkable white matter. No mass effect. Cerebral ventricles: No ventriculomegaly. Paranasal sinuses: Visualized sinuses are unremarkable. No fluid levels. Mastoid air cells: Visualized mastoid air cells are well aerated. Bones/joints: Unremarkable. No acute fracture. Soft tissues: Unremarkable. CT/CT head wo con* [id number] IMPRESSION: No acute intracranial abnormality.
[2023-08-29] MEDS: iohexol 350 mg/mL 500 mL Btl (per mL) IV (00:16)
[2023-08-29] MEDS: meclizine 25 mg tablet PO (01:51)
[2023-08-29 02:19] VITALS: PULSE 88; RESP 16; O2SAT 98
== END 2023-08-29 02:17 | disposition home or self-care (01) ==
PROVIDERS: Emergency Provider Emergency Medicine; PCP Family Medicine
DX: R42 Dizziness and giddiness (principal)
CPT/HCPCS: 70450; 70496; 70498; 80053; 81003; 81025; 83735; 85025; 96374; 96375; 99285; J2060; J2405; J7030; J8597; Q9967

== ENCOUNTER 2023-09-27 13:51 | Outpatient (CLI) | payer OTHER, SELFPAY ==
--- NOTE | 2023-09-27 13:45 | MR_ITS ---
WS: [id number] MRI BRAIN WITH AND WITHOUT CONTRAST HISTORY: meniere disease, vertigo, DE LA O COMPARISON: CT head 08/29/2023 TECHNIQUE: Multiplanar imaging performed through the brain with MultiHance 20 ml's IV. No acute infarcts are seen. Fleming-white matter differentiation is well preserved. No susceptibility artifacts or prior lacunar infarcts. Ventricles and extra-axial spaces are normal. Clivus and pituitary gland are normal. Visualized posterior fossa and brainstem are also normal. Postcontrast images are negative for masses or vascular malformations. Dural venous sinuses are normal. Paranasal sinuses: Well aerated with no significant disease. Mastoid air cells: Abnormal signal involving a large portion of the RIGHT mastoid air cells including the internal and external auditory canals extending to the tegmen tympani. The inner ear ossicles ar e not visible by MRI. There is increased T2 signal along the internal auditory canal with obliteratio n also of the tympanic membrane. Calvarium and scalp: Normal. IMPRESSION: 1. No acute intracranial hemorrhage or edema. 2. No infarct. 3. Abnormal signal involving a large portion of the RIGHT inner ear. Abnormal signal extends into th e external auditory canal and also into the mastoid air cells. Suggest dedicated temporal bone CT wit h high-resolution detail to better evaluate the RIGHT inner ear. This would better define the inner e ar ossicles and the extension of the fluid and/or soft tissue mass. ENT evaluation should probably be obtained at this time due to the extensive signal abnormality.
[2023-09-27] MEDS: gadobenate dimeglumine 20 mL vial IV (14:31)
== END 2023-09-27 13:52 | disposition home or self-care (01) ==
LOC: RAD 13:51
PROVIDERS: PCP Family Medicine; Visit Provider Family Medicine
DX: H81.02 Meniere's disease, left ear (principal)
CPT/HCPCS: 70553; A9577; J1885

== ENCOUNTER 2023-10-02 14:21 | Emergency (ER) | payer OTHER, SELFPAY ==
--- NOTE | 2023-10-02 14:26 | CTR_ITS ---
PROCEDURE INFORMATION: Exam: CT Temporal Bones Without Contrast. Exam date and time: 10/02/2023 2:00 PM Age: 33 years old Clinical indication: Condition or disease; Other: Meniere's disease; Additional info: Meniere disease, vertigo, DE LA O, CT temporal bone recommended by mri results. TECHNIQUE: Imaging protocol: Computed tomography of the temporal bones without contrast. Radiation optimization: All CT scans at this facility use at least one of these dose optimization techniques: automated exposure control; mA and/or kV adjustment per patient size (includes targeted exams where dose is matched to clinical indication); or iterative reconstruction. COMPARISON: MR head wo/w con [id number] 09/27/2023 2:03 PM RADIATION DOSE METRICS: Total DLP (mGy-cm): 295.64 FINDINGS: Right inner ear: Normal. Right ossicles and middle ear: There is complete opacification of the right middle ear. The middle ear ossicles are intact. Right external auditory canal: Normal. Right facial nerve canal: Normal. Right jugular foramen: No jugular dehiscence. Right carotid canal: No aberrant carotid canal. Right mastoid air cells: There is partial opacification of the right mastoid air cells. Left inner ear: Normal. Left ossicles and middle ear: Normal. The middle ear ossicles are intact. Left external auditory canal: Normal. Left facial nerve canal: Normal. Left jugular foramen: No jugular dehiscence. Left carotid canal: No aberrant carotid canal. Left mastoid air cells: Normal. No mastoid effusions. Bones/joints: No bony erosions. Soft tissues: Unremarkable. CT/CT temporal bone wo con* [id number] IMPRESSION: Complete opacification of the right middle ear and near-complete opacification of the right mastoid air cells with no bony erosions. Findings are likely related to effusions.
[2023-10-02 14:37] VITALS: BP 123/87; PULSE 83; RESP 16; TEMP 36.6; O2SAT 97; BMI 37.3
[2023-10-02 14:45] VITALS: BP 119/79; PULSE 81; RESP 16; O2SAT 98
[2023-10-02 15:52] VITALS: PULSE 75; RESP 16; O2SAT 97
[2023-10-02 16:29] VITALS: RESP 17; O2SAT 95
[2023-10-02] MEDS: morphine 4 mg/mL SDV 1 mL IVP (16:29)
--- NOTE | 2023-10-02 16:30 | ED_ITS ---
HPI - Ear Problem General: Chief complaint: Ear Stated complaint: right ear pain, sent by urgent care Time Seen by Provider: 10/02/23 14:26 History of Present Illness: The patient presents with a chief complaint of dizziness, body aches, and pains that started last Tuesday. The patient initially suspected the flu but did not experience any ear pain at that time. By Tuesday evening and Tuesday night, the patient developed throbbing ear pain and oozing from the ear. The patient has a history of vertigo and near syncope due to possible Meniere's disease and depression. An MRI was performed on Tuesday to rule out Meniere's disease for the left ear. The results showed a ruptured eardrum on the right side and possible mastoiditis. The patient was referred to the ER by Dr. Santiago on the recommendation of Dr. Reeves, who advised the patient to return if there was no improvement by the weekend. The patient has not yet had a CT scan due to scheduling issues. The patient reports that the ear is still draining and rates the pain as a 6 out of 10 after taking Tylenol earlier in the day. There have been no fevers, nausea, or vomiting. The patient has been experiencing dizziness intermittently for a couple of months. The patient also has a history of ear infections as a child, with scarring observed on the left side. The patient is currently taking Ciprodex ear drops as an antibiotic treatment. Review of Systems 2 General: Reports: 10 or more systems reviewed and unremarkable except in HPI and below PFSH ED PFSH: Medical History Obesity, Class II, BMI 35-39.9 Irregular menstrual cycle Uterine fibroid Anxiety Moderate major depression Genital herpes Surgical History H/O tubal ligation History of Family History Grandmother Heart disease Hypercholesteremia Hypertension Diabetes Mother Heart disease Hypercholesteremia Hypertension Diabetes Denies family history of Colon cancer Ovarian cancer Prostate cancer Breast cancer Uterine cancer Thyroid disease Stroke Social History Smoking and tobacco/nicotine status: never used tobacco/nicotine Alcohol intake: current Alcohol intake frequency: holidays/special occasions only Substance/Drug Use: never Adopted: No service: No 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) Current 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: Female Physical Exam Const: COMMON NORMALS: no acute distress, patient oriented x3, healthy appearing, alert and well nourished HENMT: COMMON NORMALS: normocephalic HEAD & SCALP: normocephalic EXTERNAL AUDITORY CANAL: Abnormal EAC present EAC laterality: right Details: otic discharge Details: purulent discharge TYMPANIC MEMBRANE: TM normal on the left and TM abnormal TM laterality: right Details: perforation Details: purulent discharge Eye: COMMON NORMALS: EOMs intact bilaterally Neck/C-Spine: COMMON NORMALS: full ROM and supple Resp: COMMON NORMALS: normal respiratory effort, No retractions and clear to auscultation bilaterally AUSCULTATION: clear to auscultation bilaterally Cardio: COMMON NORMALS: regular rate, regular rhythm, No gallops present (Cardio) and No murmurs present (Cardio) RATE: regular rate RHYTHM: regular rhythm GI: COMMON NORMALS: Soft to palpation and non-tender PALPATION: Yes Soft to palpation Extremity: GENERAL: Yes normal exam except as noted Neuro: COMMON NORMALS: patient oriented x3 SENSORIUM/ORIENTATION: Yes alert Skin: COMMON NORMALS: no rashes or lesions noted GENERAL SKIN EXAM: no rashes or lesions noted Course Vital Signs: Vital signs: Vital Signs Temperature 97.9 F 10/02/23 14:37 Pulse Rate 75 10/02/23 15:52 Respiratory Rate 17 10/02/23 16:29 Blood Pressure 119/79 10/02/23 14:45 Pulse Oximetry 95 10/02/23 16:29 Oxygen Delivery Me thod Room Air 10/02/23 15:52 MDM - Ear Medical Decision Making 33-year-old female presents emergency department from her primary care physician's office for further evaluation right ear pain. Patient had recently been diagnosed with acute otitis media with tympanic membrane rupture. She was on Ciprodex drops. However, her pain had increased today. She had had an MRI 5 days ago that showed concern for mastoiditis recommending a CT scan. CT scan h ere in the emergency department did show fluid within the middle ear and air cells without bony erosion. Case discussed with ENT at [facility] who recommended fluid culture, Augmentin p.o., and outpatient follow-up in 1 to 2 weeks. Patient is already scheduled to see her ear nose and throat doctor on October 11. Culture to be followed up by ENT as an outpatient. Encourage patient to keep this appointment. Return precautions discussed. Patient discharged home in stable condition. Differential Diagnosis Likely ruptured TM Lab Data Radiology Impressions Temporal Bone CT 10/02/23 14:26 IMPRESSION: Complete opacification of the right middle ear and near-complete opacification of the right mastoid air cells with no bony erosions. Findings are likely related to effusions. All radiology interpretation(s) finalized by discharge Discharge Plan Discharge Patient Disposition: Home Clinical Impression: Otitis media Qualifiers: Otitis media type: suppurative Chronicity: acute Laterality: right Recurrence: non-recurrent Spontaneous tympanic membrane rupture: with spontaneous rupture Qualified Code(s): H66.011 - Acute suppurative otitis media with spontaneous rupture of ear drum, right ear Perforation of tympanic membrane Qualifiers: Laterality: right Qualified Code(s): H72.91 - Unspecified perforation of tympanic membrane, right ear Condition: Stable Prescriptions: New Augmentin 500-125 mg tablet 1 tab PO BID Qty: 20 0RF No Action naproxen sodium [Aleve] 220 mg capsule 220 mg PO Q12H PRN (Reason: Pain) ciprofloxacin-dexamethasone 0.3-0.1 % drops,suspension 4 drp otic (ear) BID 7 Days Qty: 7.5 0RF bupropion HCl [Wellbutrin XL] 300 mg tablet extended release 24 hr 300 mg PO QAM Qty: 90 1RF meclizine 25 mg tablet 25 mg PO TID PRN (Reason: dizziness) Qty: 30 0RF acetaminophen 500 mg Tablet 1,000 mg PO Q6H PRN (Reason: Pain) ibuprofen 200 mg Tablet 1,600 mg PO Q6H PRN (Reason: Pain) Xanax 0.25 mg tablet 0.25 mg PO BID PRN (Reason: Anxiety) Abilify 5 mg tablet 5 mg PO QAM Discharge Orders: Discharge ED (Routine); Ordered 10/02/23 Ordered By: Odin Sylvester Referrals: Kai Moran MD [Primary Care Provider] - Discharge Diet: Advance as tolerated Discharge Activity: Increase activity as tolerated Patient Instructions: Opioid Safety, Pain Management Coding Level of Care Code ED 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
[2023-10-02 17:58] VITALS: BP 119/79; PULSE 75; RESP 17; TEMP 36.6; O2SAT 95
== END 2023-10-02 17:58 | disposition home or self-care (01) ==
PROVIDERS: Emergency Provider General Practice; PCP Family Medicine
DX: H66.011 Acute suppurative otitis media with spontaneous rupture of ear drum, right ear (principal)
CPT/HCPCS: 70480; 87070; 87077; 87186; 87205; 96374; 99284; J2270

== ENCOUNTER 2023-11-17 15:36 | Outpatient (CLI) | payer OTHER, SELFPAY ==
--- NOTE | 2023-11-17 15:43 | MR_ITS ---
WS: [id number] INDICATION: Chronic right ear tinnitus with dizziness TECHNIQUE: MR venography without gadolinium enhancement with [id number] technique. Multiplanar an d maximum intensity projection reformatted images. FINDINGS: Normal sagittal sinus. Transverse sinuses are patent. Normal sigmoid sinuses. Distal jugular veins ar e patent. Normal straight sinus and internal cerebral veins. No evidence of dural sinus thrombosis. No evidence of jugular bulb dehiscence. No other suspicious findings. IMPRESSION: 1. Normal MRV
--- NOTE | 2023-11-17 15:43 | MR_ITS ---
WS: [id number] MRA HEAD TECHNIQUE: Axial 3-D TOF images obtained with axial images and axial, sagittal, and coronal 2-D refor matted images. CLINICAL INFORMATION: MENIERE'S DISEASE, UNSPECIFIED EAR/PULSATILE TINNITUS RT EAR COMPARISON: CTA 08/29/2023 FINDINGS: Distal vertebral arteries are patent. Basilar artery is patent. Normal vascularity to the JUMPBASTING MACHINE OPERATOR territo ry bilaterally. Both ICAs are patent at the skull base. Normal cavernous carotid arteries. Normal vascularity to the HERMANN and MCA territories bilaterally. No evidence of proximal flow-limiting stenosis or aneurysm. No evidence of aberrant ICA IMPRESSION: 1. Normal intracranial MRA. 2. No evidence of aberrant ICA.
--- NOTE | 2023-11-17 15:56 | CT_ITS ---
WS: [id number] CT TEMPORAL BONES TECHNIQUE: Noncontrast CT of the temporal bones with coronal and sagittal reformatted images. CLINICAL INFORMATION: PULSATILE TINNITUS, RIGHT EAR, HEARING LOSS COMPARISON: None. DLP: 347.[address] scans at [facility] use at least one of these dose optimization techniques: automated e xposure control; mA and/or kV adjustment per patient size (includes targeted exams where dose is matc hed to clinical indication); or iterative reconstruction. FINDINGS: Paranasal sinuses are well aerated. Mild mucosal thickening in the ethmoid air cells. Shruthi l LEFT mastoid air cells. Partial opacification with mucosal thickening RIGHT mastoid air cells. Norm al posterior nasopharynx. RIGHT: Partial opacification RIGHT mastoid air cells extending to the mastoid tip. RIGHT middle ear is well aerated. Normal external auditory canal. Ossicles are normal in appearance. Normal tegmen tympani. S emicircular canals and cochlea are normal in appearance. Prussak's space is normal. Normal inner ear structures. Normal vestibular aqueduct. Facial nerve recess is normal. LEFT: Mastoid air cells are well aerated. Normal external auditory canal. Ossicles are normal in appearance . Middle ear is well aerated. Normal tegmen tympani. Semicircular canals and cochlea are normal in ap pearance. Prussak's space is normal. Normal inner ear structures. Normal vestibular aqueduct. Facial nerve recess is normal. Visualized intracranial contents and posterior fossa are normal. IMPRESSION: 1. Partial opacification RIGHT mastoid air cells. RIGHT middle ear is well aerated. RIGHT mastoid ef fusion similar to 09/27/2023 MRI. This is likely infectious or inflammatory. 2. No significant bony erosion RIGHT mastoid. Coalescence of some of the mastoid septa likely due to chronic effusion. RIGHT middle ear is well aerated with normal ossicles and scutum. 3. Normal LEFT middle ear and inner ear structures 4. No evidence of jugular bulb dehiscence or aberrant ICA.
== END 2023-11-17 15:37 | disposition home or self-care (01) ==
LOC: RAD 15:37
PROVIDERS: PCP Family Medicine; Visit Provider Specialist
DX: H93.A1 Pulsatile tinnitus, right ear (principal); H90.3 Sensorineural hearing loss, bilateral; H93.12 Tinnitus, left ear; H93.8X1 Other specified disorders of right ear; H81.01 Meniere's disease, right ear
CPT/HCPCS: 70480; 70544

== ENCOUNTER 2024-05-11 08:19 | Outpatient (CLI) | payer OTHER, SELFPAY ==
--- NOTE | 2024-05-11 08:30 | FL_ITS ---
WS: [id number] LUMBAR PUNCTURE CLINICAL INFORMATION: H81.02 - Meniere's disease, left ear COMPARISON: None. TECHNIQUE: Informed consent: The procedure and its potential risk and complications were discussed with the eusebio ent. Verbal and written consent was obtained. Timeout: A timeout was performed to confirm correct patient, procedure, and site. Patient was prepped and draped in the usual sterile fashion. Lidocaine 1% was used for local anesthes ia. Utilizing fluoroscopic guidance, a 3.5 inch 22-gauge spinal needle was advanced into the subarach noid space at L3-L4 via LEFT oblique sublaminar approach. Small amount of blood products in the needl e hub which cleared with additional drainage. Subsequently free flow of clear CSF was obtained. 11 c c of CSF was collected and sent the lab for further analysis. FLUOROSCOPIC TIME: 0min [id number] # of spot films: 1 FL/FL guided lumbarpunc dx* [id number] IMPRESSION: 1. Fluoroscopically guided lumbar puncture. No immediate complications 2. Opening pressure 23 cm of water 3. Closing pressure 16 cm of water
[2024-05-11 09:57] LABS: Appearance CSF CLEAR (CLEAR); Color CSF COLORLESS (COLORLESS); PATH Referral YES
[2024-05-11 10:09] LABS: Mononuclear WBC CSF % 67 % (50-90); Polynuclear WBC CSF % 33 % (0-10); Red Blood Cell CSF 0 10^3/uL (0-0); White Blood Cell CSF 3 /uL (0-5)
[2024-05-11 10:27] LABS: Glucose CSF 57 mg/dL (40-70); Total Protein CSF 25 mg/dL (15-45)
[2024-05-12 16:40] LABS: HIV RNA (CPY/ML) NOT DETECTED (NOT DETECTED); HIV RNA LOG NOT DETECTED copies/mL (NOT DETECTED)
[2024-05-14 18:16] LABS: CMV DNA By PCR Not Detected (Not Detected); CMV DNA, QN PCR Not Detected Log IU/mL (Not Detected); Epstein Barr Virus DNA PCR Not Detected Log cps/mL (Not Detected); Epstein Barr Virus DNA QN PCR Not Detected copies/mL (Not Detected); Epstein Barr Virus Source Results Below; SOURCE Results Below
[2024-05-15 08:14] LABS: JC Virus DNA Ultra QN PCR NOT DETECTED Log IU/mL; JC Virus Quant CSF PCR NOT DETECTED
[2024-05-16 00:40] LABS: VDRL on CSF NON-REACTIVE
== END 2024-05-11 08:20 | disposition home or self-care (01) ==
LOC: RAD 08:19
PROVIDERS: PCP Family Medicine; Visit Provider Psychiatry & Neurology Neurology
DX: H81.02 Meniere's disease, left ear (principal); H72.91 Unspecified perforation of tympanic membrane, right ear; B99.9 Unspecified infectious disease; H91.92 Unspecified hearing loss, left ear; Z30.430 Encounter for insertion of intrauterine contraceptive device; D25.1 Intramural leiomyoma of uterus; N92.6 Irregular menstruation, unspecified; E66.9 Obesity, unspecified; N83.202 Unspecified ovarian cyst, left side; F32.1 Major depressive disorder, single episode, moderate; F41.9 Anxiety disorder, unspecified; H70.90 Unspecified mastoiditis, unspecified ear
CPT/HCPCS: 36415; 62328; 80503; 82945; 84157; 86382; 86403; 86592; 87015; 87070; 87075; 87116; 87205; 87206; 87327; 87496; 87536; 87798; 87799; 87801; 89050

== ENCOUNTER 2024-05-12 10:29 | Emergency (ER) | payer OTHER, SELFPAY ==
[2024-05-12 10:35] VITALS: BP 131/86; PULSE 74; RESP 16; TEMP 36.8; O2SAT 96
--- NOTE | 2024-05-12 10:45 | ED_ITS ---
HPI - Headache General: Chief Complaint: Headache Stated Complaint: migraine (LP yesterday) Time Seen by Provider: 05/12/24 10:36 Source: patient Mode of arrival: ambulatory Limitations: no limitations History of Present Illness: 33-year-old female who had a LP done yes terday by radiology to rule out idiopathic intracranial hypertension. Patient states that since then she has had worsening headaches that are postural in nature. She states headaches a 10 out of 10 when she stands up states laying flat is currently a 2 out of 10. Denies any fever denies any vomiting diarrhea. Associated symptoms: Deny chest pain, fever(s), nausea, rash or vomiting Related Data Home Medications Medication Instructions Recorded Confirmed naproxen sodium 220 mg capsule 220 mg PO Q12H PRN Pain 05/26/23 05/02/24 (Aleve) acetaminophen 500 mg tablet 1,000 mg PO Q6H PRN Pain 10/02/23 05/02/24 ibuprofen 200 mg tablet 800 mg PO Q6H PRN Pain 05/02/24 05/02/24 Previous Rx's Medication Instructions Recorded meclizine 25 mg tablet 25 mg PO TID PRN dizziness #30 tabs 08/29/23 alprazolam 0.25 mg tablet (Xanax) 0.25 mg PO BID PRN Anxiety #60 tabs 01/24/24 aripiprazole 5 mg tablet (Abilify) 5 mg PO QAM #90 tabs 01/24/24 bupropion HCl 300 mg 24 hr tablet, 300 mg PO QAM #90 tabs 01/24/24 extended release (Wellbutrin XL) Allergies Allergy/AdvReac Type Severity Reaction Status Date / Time buspirone [From BuSpar] AdvReac Intermediate ADR-Shakine Verified 05/02/24 10:16 ss Review of Systems Const: Denies: fever(s), chills, body aches or change in appetite Eyes: Denies: blurry vision or eye discomfort ENMT: Denies: throat pain or dental pain Card: Denies: chest pain Resp: Denies: dyspnea GI: Denies: abdominal pain, nausea, vomiting or diarrhea Musc: Denies: neck pain or back pain Skin/Breast: Denies: rash Neuro: Reports: headache(s) PFSH ED PFSH: Medical History Obesity, Class II, BMI 35-39.9 Irregular menstrual cycle Uterine fibroid Anxiety Moderate major depression Genital herpes Surgical History H/O tubal ligation History of Family History Grandmother Heart disease Hypercholesteremia Hypertension Diabetes Mother Heart disease Hypercholesteremia Hypertension Diabetes Denies family history of Colon cancer Ovarian cancer Prostate cancer Breast cancer Uterine cancer Thyroid disease Stroke Social History Smoking and tobacco/nicotine status: never used tobacco/nicotine Alcohol intake: current Alcohol intake frequency: holidays/special occasions only Substance/Drug Use: never Adopted: No service: No 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) Current 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: Female Physical Exam Const: COMMON NORMALS: no acute distress, patient oriented x3 and healthy appearing HENMT: COMMON NORMALS: normocephalic and atraumatic HEAD & SCALP: normocephalic and atraumatic Eye: COMMON NORMALS: Equal, round and reactive pupils present and EOMs intact bilaterally PUPIL: Yes Equal, round and reactive pupils present Neck/C-Spine: COMMON NORMALS: full ROM and supple Chest: COMMONS NORMALS: normal inspection of the chest Resp: COMMON NORMALS: normal respiratory effort Cardio: COMMON NORMALS: regular rate RATE: regular rate Extremity: COMMON NORMALS: normal to inspection and full ROM Neuro: COMMON NORMALS: patient oriented x3, moves all extremities and no focal motor deficits Psych: COMMON NORMALS: mental status grossly normal, Normal thought process present and cooperative THOUGHT PROCESS: Normal thought process present Skin: COMMON NORMALS: no rashes or lesions noted and no wounds GENERAL SKIN EXAM: no rashes or lesions noted Course Vital Signs: Vital signs: Vital Signs Temperature 98.3 F 05/12/24 10:35 Pulse Rate 96 05/12/24 10:59 Respiratory Rate 14 05/12/24 10:59 Blood Pressure 131/86 05/12/24 10:59 Pulse Oximetry 99 05/12/24 10:59 Oxygen Delivery Me thod Room Air 05/12/24 10:59 MDM - Headache Medical Decision Making Patient presents with headache likely post lumbar puncture headache patient did receive a blood patch here feels much improved follow-up with PCP return if worsening patient understands agrees to plan. Medical Records I reviewed the patient's medical records. No radiology studies performed this visit Discharge Plan Discharge Patient Disposition: Home Clinical Impression: Headache Condition: Stable Prescriptions: No Action naproxen sodium [Aleve] 220 mg capsule 220 mg PO Q12H PRN (Reason: Pain) bupropion HCl [Wellbutrin XL] 300 mg tablet extended release 24 hr 300 mg PO QAM Qty: 90 1RF Abilify 5 mg tablet 5 mg PO QAM Qty: 90 1RF Xanax 0.25 mg tablet 0.25 mg PO BID PRN (Reason: Anxiety) Qty: 60 0RF meclizine 25 mg tablet 25 mg PO TID PRN (Reason: dizziness) Qty: 30 0RF acetaminophen 500 mg Tablet 1,000 mg PO Q6H PRN (Reason: Pain) ibuprofen 200 mg tablet 800 mg PO Q6H PRN (Reason: Pain) Discharge Orders: Discharge ED (Routine); Ordered 05/12/24 Ordered By: Foreign Lipscomb Referrals: Kai Moran MD [Primary Care Provider] - 4-7 days Discharge Diet: Advance as tolerated Discharge Activity: Resume usual activity Patient Instructions: Headache, Lumbar Puncture (ED) Coding Level of Care Code ED Performance Specialist for Modesta Joaquin
[2024-05-12] MEDS: metoclopramide 5 mg/mL SDV 2 mL 10 MG IVP (10:51)
[2024-05-12] MEDS: sodium chloride 0.9% 1,000 ML 999 ML IV (10:51)
[2024-05-12] MEDS: ketorolac 30 mg/mL INJ IVP (10:52)
[2024-05-12] MEDS: diphenhydrAMINE 50 mg/mL SDV 1mL IVP (10:52)
[2024-05-12 10:59] VITALS: BP 131/86; PULSE 96; RESP 14; O2SAT 99
--- NOTE | 2024-05-12 11:51 | ANES.PREANE2 ---
Pre-Anesthetic Assessment Height/Weight: Height 5 ft 2 in Temp Pulse Resp BP Pulse Ox O2 Del Method 98.3 F 96 14 131/86 99 Room Air 05/12/24 10:35 05/12/24 10:59 05/12/24 10:59 05/12/24 10:59 05/12/24 10:59 05/12/24 10:59 Preop Diagnosis: Spinal headache Was Beta Martha taken within 24 hours: N/A Was Clonidine taken within 24 hours: N/A Social No alcohol and No tobacco Exam alert, oriented x 3, clear to auscultation bilaterally and regular rate & rhythm Airway Submandibular: within normal limits Cervical ROM: within normal limits Mallampati: Class III Dentition: full Anesthetic Plan ASA status: 2 Anesthesia: Regional (specify below) Other: Patient presents to the ER after undergoing a spinal tap yesterday around 8:30 AM. Patient states that she was getting a tap done because of concerns of a whooshing sound in her ears, ENT has seen her and she was told it was not an ear problem No prior issues with anesthesia Denies any cardiac or pulmonary issues Prior epidural years ago without issues Patient does have the typical symptoms of a spinal headache. 10 out of 10 pain when sitting or standing, 2?3 when laying flat We discussed the risks of performing an epidural blood patch. She would like to proceed with this at this time Medications/Allergies Home Medications Medication Instructions Recorded Confirmed Last Taken Type naproxen sodium 220 mg capsule 220 mg PO Q12H PRN Pain 05/26/23 05/02/24 Unknown History (Aleve) meclizine 25 mg tablet 25 mg PO TID PRN dizziness #30 tabs 08/29/23 05/02/24 Unknown Rx acetaminophen 500 mg tablet 1,000 mg PO Q6H PRN Pain 10/02/23 05/02/24 10/02/23 History alprazolam 0.25 mg tablet (Xanax) 0.25 mg PO BID PRN Anxiety #60 tabs 01/24/24 05/02/24 Unknown Rx aripiprazole 5 mg tablet (Abilify) 5 mg PO QAM #90 tabs 01/24/24 05/02/24 Unknown Rx bupropion HCl 300 mg 24 hr tablet, 300 mg PO QAM #90 tabs 07/02/24 10/09/24 Unknown Rx extended release (Wellbutrin XL) ibuprofen 200 mg tablet 800 mg PO Q6H PRN Pain 05/02/24 05/02/24 Unknown History Allergies Allergy/AdvReac Type Severity Reaction Status Date / Time buspirone [From BuSpar] AdvReac Intermediate ADR-Shakine Verified 05/02/24 10:16 ss PFS Anesthesia Medical History Obesity, Class II, BMI 35-39.9 Irregular menstrual cycle Uterine fibroid Anxiety Moderate major depression Genital herpes Surgical History H/O tubal ligation History of Family History Grandmother Heart disease Hypercholesteremia Hypertension Diabetes Mother Heart disease Hypercholesteremia Hypertension Diabetes Denies family history of Colon cancer Ovarian cancer Prostate cancer Breast cancer Uterine cancer Thyroid disease Stroke Social History Smoking and tobacco/nicotine status: never used tobacco/nicotine Alcohol intake: current Alcohol intake frequency: holidays/special occasions only Substance/Drug Use: never Adopted: No service: No 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
--- NOTE | 2024-05-12 11:53 | P.ANES_ITS ---
Anesthesia Procedures Procedure/Date: 05/12/24 Epidural: Time Out Performed: Yes Consents Signed: Procedure Consent Consent: requested by attending/covering physician and from patient Lumbar Level: L3-L4 Epidural position: sitting Epidural procedure: sterile prep of area, 1% lidocaine to numb the area, 18 g needle, negative for paresthesia p assed and neg for paresthesia Additional Comments: 23 cc of patient's blood was drawn steri chaz by OPERATING TABLE ASSEMBLER once the epidural location was found. Patient tolerated injection fine. Patient was laid flat and asked to stay in this position for 20-30 minutes. After few minutes patient was already stating her headache was better
[2024-05-12 12:31] VITALS: BP 107/78; PULSE 96; O2SAT 99
== END 2024-05-12 12:32 | disposition home or self-care (01) ==
PROVIDERS: Emergency Provider Emergency Medicine; PCP Family Medicine
DX: R51.9 Headache, unspecified (principal)
CPT/HCPCS: 96361; 96374; 96375; 99284; J1200; J1885; J2765; J7030

== ENCOUNTER 2024-11-06 15:13 | Outpatient (CLI) | payer OTHER, SELFPAY ==
--- NOTE | 2024-11-06 15:15 | USCV_ITS ---
Michelle Haro Age: 34 Gender: F : 1990 Exam Date: 11/06/2024 15:32 Ordering Phys: Ap Corral MD Technologist: [facility] [place] [facility] [place] Indication: bruit Risk Factors: Previous Vascular Surgery: Right Brachial BP: / Left Brachial BP: / Right Left Velocity (cm/s) Spectral Plaque Velocity (cm/s) Spectral Plaque Syst/Diast Broadening Syst/Diast Broadening 99.70/ 28.50 Prox CCA 98.50 / 26.60 108.80/26.60 Mid CCA 96.10 / 27.70 96.00/ 30.30 Distal CCA 73.30 / 27.70 97.80/ 32.10 Prox ICA 70.70 / 32.50 112.90/37.20 Mid ICA 69.40 / 30.70 45.80/ 8.10 Distal ICA 87.10 / 32.00 112.40 ECA 80.70 1.00 ICA/CCA 1.00 Antegrade Vertebral Antegrade 37.30/ 12.80 cm/s 51.00/ 22.60 cm/s Tri Subclavian Tri 59.60 107.1 0 FINDINGS Comparison: none available. No significant elevation of systolic or diastolic velocities. Waveforms are normal. No significant amount of calcified plaque or intimal thickening identified. CONCLUSIONS Normal carotid doppler ultrasound. Dr. Serenity Donald DO (Electronically Signed) Final Date: 06 November 2024 16:21 S
== END 2024-11-06 15:14 | disposition home or self-care (01) ==
PROVIDERS: PCP Family Medicine; Visit Provider Psychiatry & Neurology Neurology
DX: R09.89 Other specified symptoms and signs involving the circulatory and respiratory systems (principal)
CPT/HCPCS: 93880